=== PATIENT | female | born 1965 | race Caucasian/White ===

== ENCOUNTER 2019-03-10 10:43 | Emergency (ER) | payer SELFPAY ==
[~2019-03-10] VITALS: Ht 149.9 cm; Wt 60.8 kg
[2019-03-10 10:46] VITALS: Ht 149.9 cm; Wt 60.8 kg
[2019-03-10 14:14] VITALS: BP 138/93
== END 2019-03-10 14:14 | disposition home or self-care (01) ==
LOC: ED 10:43
DX: S63.501A Unspecified sprain of right wrist, initial encounter (principal); S43.401A Unspecified sprain of right shoulder joint, initial encounter; W18.2XXA Fall in (into) shower or empty bathtub, initial encounter; Y93.89 Activity, other specified; Y92.091 Bathroom in other non-institutional residence as the place of occurrence of the external cause; Y99.8 Other external cause status
CPT/HCPCS: J1885